=== PATIENT | male | born 1970 | race Caucasian/White ===

== ENCOUNTER → 2017-09-15 | Outpatient (CLI) | payer OTHER | LOC: LAB.O 14:09 | DX: Z51.81 Encounter for therapeutic drug level monitoring (principal) ==

== ENCOUNTER → 2019-04-18 | Outpatient (CLI) | payer OTHER ==
--- NOTE | 2019-04-19 09:08 | RAD ---
EXAM DESCRIPTION: Knee,Right Complete CLINICAL HISTORY: 48 years Male, PAIN IN RIGHT KNEE COMPARISON: None. Findings: Location: Right knee No acute fracture or dislocation. Mild medial compartment narrowing. Small scattered osteophytes. Shallow femoral trochlea. No significant joint effusion. IMPRESSION: No evidence of acute process in the right knee. Electronically signed by: Beto Hamm MD 04/19/2019 9:06 AM CDT
--- NOTE | 2019-04-19 09:09 | RAD ---
Single radiograph pelvis Indication: PAIN IN RIGHT HIP Comparison: None. Impression: No acute fracture. Mild bilateral hip osteoarthritis with joint space narrowing and tiny osteophytes. Electronically signed by: Scott Howard MD 04/19/2019 9:07 AM CDT
== END ==
LOC: RAD 10:21
PROVIDERS: ATTEND Orthopaedic Surgery
DX: M16.0 Bilateral primary osteoarthritis of hip (principal); M25.759 Osteophyte, unspecified hip; M25.561 Pain in right knee